=== PATIENT | female | born 1980 | race Caucasian/White ===

== ENCOUNTER → 2020-11-14 | Outpatient (CLI) | payer OTHER, BC ==
[~2020-11-14] MED LIST: ACETAMINOPHEN325 M1 PO; ADVIL100 M2 PO; ALEVE220 M1 PO; ATIVAN1 M1 PO; BOTOX100 UNIT SUBQ; EFFEXOR XR150 MG PO; IBUPROFEN100 MG PO; LAMICTAL 25 MG25 M1 PO; LAMICTAL XR100 MG PO; LAMICTAL XR250 MG PO; LORAZEPAM 1 MG T1 M1 PO; MAXALT MLT ODT10 M1 SUBLING; METOPROLOL SUCC50 MG PO; NASONEX17 GM NASAL; TOPAMAX50 MG PO; VENLAFAXINE HCL25 MG PO; VITAMIN D350 MC3 PO; [UNRECOGNIZED DRUG - OTHER] PO
== END ==
LOC: LAB 13:17
PROVIDERS: ATTEND Otolaryngology
DX: Z01.812 Encounter for preprocedural laboratory examination (principal); Z20.822 Contact with and (suspected) exposure to COVID-19

== ENCOUNTER 2020-11-18 06:12 | Day surgery (SDC) | payer OTHER, BC ==
[~2020-11-18] VITALS: Ht 157.5 cm; Wt 84.8 kg
--- NOTE | ~2020-11-18 | O ---
[facility] [place] [address] OPERATIVE REPORT Name: JAVIER NAYLOR Room #: DEP [facility]..#: [id number] Admission: 11/18/20 Attend Phys: Omar Somers MD Discharge: 11/18/20 Date of : 80 Report #: [id number] THIS REPORT FOR: cc: Devin Leon MD,Devin Somers,Omar Wilkinson MD ~ DATE OF SERVICE: 11/18/2020 PREOPERATIVE DIAGNOSES: Nasal airway obstruction, turbinate hypertrophy, nasal valve collapse. POSTOPERATIVE DIAGNOSES: Nasal airway obstruction, turbinate hypertrophy, nasal valve collapse. PROCEDURE: Revision submucous resection and excision of anterior-inferior turbinates bilaterally, Vivaer treatment to nasal valves. SURGEON: Omar Somers MD ANESTHESIA: General LMA along with local anesthetic. TECHNIQUE: After obtaining consent, the patient was brought to the operating suite, appropriate time-out was performed. General anesthesia was obtained. The bed was turned 90 degrees. The nose was prepped and draped in usual sterile fashion. 1 mL of 1% Xylocaine 1:100,000 epinephrine was injected on the anterior-inferior aspect of each inferior turbinate. An additional milliliter was injected on each nasal valve area subcutaneously. Using a 0-degree endoscope, the left naris was intubated. A small stab incision was made in the anterior-inferior face of the inferior turbinate and using a caudal elevator submucous flap was elevated medially and medial inferiorly. Microdebrider was then used to take down the inferior turbinate. I then used a Iggy scissors to trim a small portion of the anterior-inferior head of the inferior turbinate. The turbinate was then outfractured with a Chester elevator. Similar technique was performed on the right turbinate. The nasal hairs were trimmed from the nasal vestibule. The Vivaer device was set on its preselected setting and was applied on 3 separate locations on each nasal valve on the nasal surface for a full 30 seconds to effect. An additional touch up was done on the left side at one area that was not overlapped. A single piece of Merogel was cut in half, folded and placed between the septum and inferior turbinate on each side to prevent any synechia formation. At this point, she was turned over to Anesthesia, where she was lightened from anesthetic, extubated, and taken to recovery room in [address] [address] OPERATIVE REPORT Name: JAVIER NAYLOR HEMANTH Room #: DEP [facility]#: [id number] Admission: 11/18/20 Attend Phys: Omar Somers MD Discharge: 11/18/20 Date of : 80 Report #: [id number] condition. ESTIMATED BLOOD LOSS: Less than the symptoms seem. By: [id number] Omar Somers MD /nt
--- NOTE | 2020-11-18 07:16 | EKG ---
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
[2020-11-18 07:22] VITALS: BP 125/82
[2020-11-18 08:48] VITALS: BP 125/82
[2020-11-18 08:49] VITALS: BP 125/82
== END 2020-11-18 10:20 | disposition home or self-care (01) ==
LOC: TBA 06:12 → OR 06:12
PROVIDERS: ATTEND Otolaryngology
DX: J34.3 Hypertrophy of nasal turbinates (principal); J34.89 Other specified disorders of nose and nasal sinuses; M95.0 Acquired deformity of nose; F32.9 Major depressive disorder, single episode, unspecified; F41.9 Anxiety disorder, unspecified; K21.9 Gastro-esophageal reflux disease without esophagitis; Z98.890 Other specified postprocedural states; Z90.710 Acquired absence of both cervix and uterus; Z79.899 Other long term (current) drug therapy; Z87.01 Personal history of pneumonia (recurrent); Z90.49 Acquired absence of other specified parts of digestive tract
CPT/HCPCS: 50010; 50101; 50386; 50398; 51634; 53635; 62110; 62900; 64037; 70005